=== PATIENT | female | born 1940 | race Caucasian/White ===

== ENCOUNTER 2020-08-15 09:54 | Day surgery (SDC) | payer OTHER, SELFPAY ==
[~2020-08-15] VITALS: Ht 154.9 cm; Wt 54.4 kg
[2020-08-15] MEDS ORDERED: fentaNYL citrate 0.05 MG/ML VIAL ONE (11:49)
[2020-08-15] MEDS ORDERED: MIDAZOLAM 2 MG/2 ML VIAL ONE (11:50)
[2020-08-15] MEDS ORDERED: MIDAZOLAM 2 MG/2 ML VIAL IVP ONE (12:30)
== END 2020-08-15 12:50 | disposition home or self-care (01) ==
LOC: MDS 09:54 → MMU 10:45 → MDS 12:50
PROVIDERS: ATTEND Internal Medicine Gastroenterology
DX: K92.1 Melena (principal); K59.00 Constipation, unspecified; I10 Essential (primary) hypertension; M19.90 Unspecified osteoarthritis, unspecified site; Z88.8 Allergy status to other drugs, medicaments and biological substances; Z79.899 Other long term (current) drug therapy; Z98.890 Other specified postprocedural states; Z20.828 Contact with and (suspected) exposure to other viral communicable diseases
CPT/HCPCS: 36415; 43239; 86677; J2250; U0003; J3010